=== PATIENT | male | born 1950 | race Caucasian/White ===

== ENCOUNTER 2021-07-23 13:46 | Inpatient (IN) | payer MEDICAID, SELFPAY ==
[~2021-07-23] VITALS: Ht 177.8 cm; Wt 59.9 kg
[2021-07-23 14:06] VITALS: BP_SYST 102
[2021-07-23] MEDS ORDERED: NACL 0.9% 2,000 ML IV ONE (14:45)
[2021-07-23] MEDS ORDERED: AZITHROMYCIN 500 MG in NS 250 ML IV ONE (14:45)
[2021-07-23] MEDS ORDERED: cefTRIAXone 1 GM IVPB PREMIX 50 ML IV ONE (14:45)
[2021-07-23] MEDS ORDERED: AZITHROMYCIN 500 MG/VIAL (ZITHROMAX) IV ONE (15:00)
[2021-07-23 15:18] LABS: HEMATOCRIT 50.1 % (36-54); HEMOGLOBIN 15.5 g/dL (14.0-18.0); MEAN CORPUSCULAR HEMOGLOBIN 31 pg (27-31); MEAN CORPUSCULAR HGB CONC 31 % (32-36); MEAN CORPUSCULAR VOLUME 99 fL (79.0-98.0); PLATELET COUNT (AUTO) 70 K/uL (130-430); RED BLOOD CELL COUNT(AUTO) 5.06 MIL/uL (4.2-6.2); RED CELL DISTRIBUTION WIDTH 14.1 % (9.0-15.0)
[2021-07-23 15:25] LABS: ANION GAP 11 (5-15); CALCIUM 9.9 mg/dL (8.4-11.0); CREATININE 1.42 mg/dL (0.55-1.30); GLUCOSE 278 mg/dL (70-99); POTASSIUM 3.6 mmol/L (3.5-5.1); UREA NITROGEN, BLOOD 81 mg/dL (8-21)
[2021-07-23 15:31] LABS: ALANINE AMINOTRANSFERASE 15 U/L (12-78); ALBUMIN 3.1 g/dL (3.4-4.8); ASPARTATE AMINOTRANSFERASE 17 U/L (10-37)
[2021-07-23 15:37] LABS: WHITE BLOOD COUNT (AUTO) 17.5 K/uL (4.8-10.8)
[2021-07-23 15:44] LABS: SODIUM SERUM 166 mmol/L (136-145)
[2021-07-23 15:45] LABS: CHLORIDE 122 mmol/L (98-107)
[2021-07-23 16:32] LABS: BILIRUBIN,URINE NEGATIVE (NEGATIVE); BLOOD, URINE 3+ (NEGATIVE); CLARITY/URINE CLOUDY (CLEAR); COLOR,URINE YELLOW (YELLOW); GLUCOSE,URINE 2+ (NEGATIVE); KETONES,URINE NEGATIVE (NEGATIVE); LEUKOCYTE ESTERASE ,URINE 2+ (NEGATIVE); NITRITE, URINE NEGATIVE (NEGATIVE); PROTEIN URINE 2+ (NEGATIVE)
[2021-07-23 16:48] LABS: BACTERIA,URINE MODERATE /HPF (None Seen); RBC,URINE 50-80 /HPF (0-3); URINE AMORPHOUS URATE 2+ /HPF (None Seen); WBC,URINE 50-80 /HPF (0-3); YEAST,URINE Many /HPF (None Seen)
[2021-07-23 16:49] LABS: MUCUS,URINE None Seen /LPF (None Seen)
[2021-07-23] MEDS ORDERED: cefTRIAXone 1 GM in D5W 50 ML IV SCH (17:00)
[2021-07-23] MEDS ORDERED: DEXTROSE 50% JECT 50 ML DISP.SYRIN IVP PRN (17:00)
[2021-07-23] MEDS: 0.45% NACL 1,000 ML IV SCH ×3 (17:00→23:44)
[2021-07-23 17:40] LABS: BAND % (MANUAL) 26 % (0-6); LYMPHOCYTES % (MANUAL) 17 % (20-46)
[2021-07-23 17:41] LABS: BASOPHILS % (MANUAL) 0 % (0-2); EOSINOPHILS % (MANUAL) 0 % (0-7); MONOCYTES % (MANUAL) 3 % (0-11)
[2021-07-23] MEDS ORDERED: ENOXAPARIN SODIUM 30 MG/0.3 ML SYRINGE SUBCUT SCH (21:00)
[2021-07-23] MEDS: INSULIN REGULAR, HUMAN 100 UNITS/ML, 10 ML VIAL (humuLIN R) SUBCUT PRN (21:18)
[2021-07-23] MEDS ORDERED: PIPERACILLIN/TAZOBACTAM 2.25 GM VIAL IV ONE (21:22)
[2021-07-23] MEDS: PIPERACILLIN/TAZO 2.25G/DEX-IS 50 ML IV SCH (21:49)
[2021-07-23] MEDS ORDERED: LISI20TA30 GT (22:26)
[2021-07-23] MEDS ORDERED: TYLL650 GT (22:26)
[2021-07-23] MEDS ORDERED: DONE10TA44 GT (22:26)
[2021-07-23] MEDS ORDERED: ERTU5TAB GT (22:36)
[2021-07-23] MEDS ORDERED: COLL100 GT (22:36)
[2021-07-23] MEDS ORDERED: EMPA10TA GT (22:36)
[2021-07-23] MEDS ORDERED: [UNRECOGNIZED DRUG - CODE] GT (22:36)
[2021-07-23] MEDS ORDERED: OMEP40CA20 GT (22:36)
[2021-07-23] MEDS ORDERED: NOR10 GT (22:36)
[2021-07-23] MEDS ORDERED: CHOL100062 GT (22:36)
[2021-07-23] MEDS ORDERED: LABE200T5 GT (22:36)
[2021-07-23] MEDS ORDERED: CALC-16 GT (22:36)
[2021-07-23] MEDS ORDERED: METF1000 GT (22:36)
[2021-07-23] MEDS ORDERED: FERR220S5 GT (22:36)
[2021-07-23] MEDS ORDERED: SUCR1ORA15 GT (22:36)
[2021-07-23 23:20] VITALS: BP_SYST 117
[2021-07-24 00:01] VITALS: BP_SYST 117
[2021-07-24] MEDS: 0.45% NACL 1,000 ML IV SCH ×5 (03:12→17:17)
[2021-07-24 04:30] VITALS: BP_SYST 142
[2021-07-24] MEDS: PIPERACILLIN/TAZO 2.25G/DEX-IS 50 ML IV SCH ×5 (05:53→23:56)
[2021-07-24 07:48] LABS: BASOPHILS % (AUTO) 0.3 % (0.0-2.0); EOSINOPHILS # (AUTO) 0.2 K/uL (0.0-0.4); HEMATOCRIT 33.7 % (36-54); HEMOGLOBIN 10.5 g/dL (14.0-18.0); LYMPHOCYTES # (AUTO) 1.7 K/uL (1.0-5.5); MEAN CORPUSCULAR HEMOGLOBIN 31 pg (27-31); MEAN CORPUSCULAR HGB CONC 31 % (32-36); MEAN CORPUSCULAR VOLUME 101 fL (79.0-98.0); MONOCYTES # (AUTO) 0.8 K/uL (0.0-1.0); MONOCYTES % (AUTO) 5.2 % (1.7-9.3); NEUTROPHILS # (AUTO) 12.8 K/uL (1.8-7.7); NEUTROPHILS % (AUTO) 82.5 % (40.0-70.0); RED BLOOD CELL COUNT(AUTO) 3.35 MIL/uL (4.2-6.2); RED CELL DISTRIBUTION WIDTH 14.4 % (9.0-15.0); WHITE BLOOD COUNT (AUTO) 15.5 K/uL (4.8-10.8)
[2021-07-24 08:15] VITALS: BP_SYST 129
[2021-07-24 08:23] LABS: ALANINE AMINOTRANSFERASE 18 U/L (12-78); ALBUMIN 2.1 g/dL (3.4-4.8); ANION GAP 6 (5-15); CALCIUM 7.9 mg/dL (8.4-11.0); CREATININE 0.93 mg/dL (0.55-1.30); GLUCOSE 196 mg/dL (70-99); POTASSIUM 3.2 mmol/L (3.5-5.1); SODIUM SERUM 159 mmol/L (136-145); TOTAL BILIRUBIN 1.3 mg/dL (0.0-1.0); UREA NITROGEN, BLOOD 51 mg/dL (8-21)
[2021-07-24 08:46] LABS: PLATELET COUNT (AUTO) 45 K/uL (130-430)
[2021-07-24 09:14] LABS: CHLORIDE 124 mmol/L (98-107)
[2021-07-24 09:15] LABS: ASPARTATE AMINOTRANSFERASE 46 U/L (10-37)
[2021-07-24 12:22] VITALS: BP_SYST 132
[2021-07-24 16:00] VITALS: BP_SYST 130
[2021-07-24] MEDS: SUCRALFATE 1 GM/10 ML UDC GT SCH ×2 (17:25→21:52)
[2021-07-24] MEDS ORDERED: POTASSIUM CHLORIDE 20 MEQ/PKT PACKET PO ONE (17:30)
[2021-07-24] MEDS ORDERED: metFORMIN HCL 500 MG TABLET GT SCH (18:00)
[2021-07-24 20:00] VITALS: BP_SYST 137
[2021-07-24] MEDS ORDERED: lisinopriL 20 MG TABLET GT SCH (21:00)
[2021-07-24] MEDS: ACETAMINOPHEN 650 MG/20.3 ML UDC GT SCH (21:52)
[2021-07-24] MEDS: DONEPEZIL HCL 5 MG TABLET (ARICEPT) GT SCH (21:54)
[2021-07-24] MEDS: lisinopriL 20 MG TABLET GT SCH (21:54)
[2021-07-25 00:40] VITALS: BP_SYST 107
[2021-07-25] MEDS: 0.45% NACL 1,000 ML IV SCH ×2 (04:27→11:29)
[2021-07-25] MEDS: PIPERACILLIN/TAZO 2.25G/DEX-IS 50 ML IV SCH ×3 (06:30→17:56)
[2021-07-25 07:49] LABS: BASOPHILS % (AUTO) 0.3 % (0.0-2.0); EOSINOPHILS # (AUTO) 0.4 K/uL (0.0-0.4); EOSINOPHILS % (AUTO) 3.2 % (0.0-4.0); HEMATOCRIT 32.1 % (36-54); HEMOGLOBIN 10.2 g/dL (14.0-18.0); LYMPHOCYTES # (AUTO) 1.4 K/uL (1.0-5.5); LYMPHOCYTES % (AUTO) 11.8 % (20.5-51.5); MEAN CORPUSCULAR HEMOGLOBIN 31 pg (27-31); MEAN CORPUSCULAR HGB CONC 32 % (32-36); MEAN CORPUSCULAR VOLUME 99 fL (79.0-98.0); MONOCYTES # (AUTO) 0.7 K/uL (0.0-1.0); MONOCYTES % (AUTO) 6.1 % (1.7-9.3); NEUTROPHILS # (AUTO) 9.2 K/uL (1.8-7.7); RED BLOOD CELL COUNT(AUTO) 3.24 MIL/uL (4.2-6.2); RED CELL DISTRIBUTION WIDTH 13.4 % (9.0-15.0); RETICULOCYTE COUNT 0.8 % (0.5-1.5); WHITE BLOOD COUNT (AUTO) 11.7 K/uL (4.8-10.8)
[2021-07-25 07:59] LABS: TOTAL IRON BIND. CAPACITY 135 ug/dL (250-450)
[2021-07-25 08:00] VITALS: BP_SYST 120
[2021-07-25 08:03] LABS: ALANINE AMINOTRANSFERASE 20 U/L (12-78); ASPARTATE AMINOTRANSFERASE 28 U/L (10-37); CALCIUM 7.9 mg/dL (8.4-11.0); CREATININE 0.64 mg/dL (0.55-1.30); GLUCOSE 97 mg/dL (70-99); TOTAL BILIRUBIN 0.8 mg/dL (0.0-1.0); UREA NITROGEN, BLOOD 30 mg/dL (8-21)
[2021-07-25 08:09] LABS: PROTHROMBIN TIME 10.3 SECS (9.5-12.5)
[2021-07-25 08:37] LABS: ANION GAP 6 (5-15); POTASSIUM 3.6 mmol/L (3.5-5.1); SODIUM SERUM 157 mmol/L (136-145)
[2021-07-25 08:45] LABS: CHLORIDE 122 mmol/L (98-107)
[2021-07-25] MEDS ORDERED: OMEPRAZOLE Non-Formulary 20 MG CAPSULE.DR GT SCH (09:00)
[2021-07-25] MEDS ORDERED: NON-FORMULARY MEDICATION (Empagliflozin (Jardiance) 10 MG) GT SCH (09:00)
[2021-07-25] MEDS ORDERED: NON-FORMULARY MEDICATION (Cholecalciferol (Vitamin D3) (Vitamin D3) 1,000 UNIT) GT SCH (09:00)
[2021-07-25] MEDS ORDERED: ERTUGLIFLOZIN PIDOLATE 5 MG GT SCH (09:00)
[2021-07-25 09:33] LABS: PLATELET COUNT (AUTO) 39 K/uL (130-430)
[2021-07-25] MEDS: DOCUSATE SODIUM 100 MG/10 ML UDC GT SCH (09:56)
[2021-07-25] MEDS: amLODIPine BESYLATE 10 MG TABLET GT SCH (09:56)
[2021-07-25] MEDS: SUCRALFATE 1 GM/10 ML UDC GT SCH ×4 (09:56→21:14)
[2021-07-25] MEDS: ACETAMINOPHEN 650 MG/20.3 ML UDC GT SCH ×2 (09:57→21:09)
[2021-07-25] MEDS: PANTOPRAZOLE SODIUM 40 MG TAB GT SCH (09:57)
[2021-07-25] MEDS: CHOLECALCIFEROL (VITAMIN D3) 2,000 UNIT TABLET GT SCH (09:57)
[2021-07-25] MEDS: POTASSIUM CHLORIDE 20 MEQ/PKT PACKET PO SCH (09:57)
[2021-07-25] MEDS: lisinopriL 20 MG TABLET GT SCH ×2 (09:57→21:15)
[2021-07-25 11:48] VITALS: BP_SYST 119
[2021-07-25 12:00] VITALS: BP_SYST 120
[2021-07-25 14:42] LABS: NEUTROPHILS % (AUTO) 78.6 % (40.0-70.0)
[2021-07-25 16:00] VITALS: BP_SYST 122
[2021-07-25 20:00] VITALS: BP_SYST 136
[2021-07-25] MEDS: DONEPEZIL HCL 5 MG TABLET (ARICEPT) GT SCH (21:10)
[2021-07-25] MEDS: LABETALOL HCL 100 MG TABLET GT SCH (21:10)
[2021-07-25] MEDS: CALCIUM CARBONATE/VITAMIN D3 1 TAB TABLET GT SCH (21:16)
[2021-07-26] MEDS: PIPERACILLIN/TAZO 2.25G/DEX-IS 50 ML IV SCH ×4 (00:06→17:37)
[2021-07-26 00:21] VITALS: BP_SYST 133
[2021-07-26 06:06] LABS: FOLATE (FOLIC ACID) 13.3 ng/mL (>3.0)
[2021-07-26] MEDS: DOCUSATE SODIUM 100 MG/10 ML UDC GT SCH (08:41)
[2021-07-26] MEDS: FERROUS SULFATE 300 MG/5 ML UDC GT SCH (08:41)
[2021-07-26] MEDS: SUCRALFATE 1 GM/10 ML UDC GT SCH ×4 (08:41→22:42)
[2021-07-26] MEDS: POTASSIUM CHLORIDE 20 MEQ/PKT PACKET PO SCH (08:42)
[2021-07-26] MEDS: CHOLECALCIFEROL (VITAMIN D3) 2,000 UNIT TABLET GT SCH (08:42)
[2021-07-26] MEDS: MULTIVITS,CA,MINERALS/IRON/FA 1 TABLET GT SCH (08:43)
[2021-07-26] MEDS: PANTOPRAZOLE SODIUM 40 MG TAB GT SCH (08:43)
[2021-07-26] MEDS: CALCIUM CARBONATE/VITAMIN D3 1 TAB TABLET GT SCH ×2 (08:44→21:00)
[2021-07-26] MEDS: amLODIPine BESYLATE 10 MG TABLET GT SCH (08:53)
[2021-07-26] MEDS: lisinopriL 20 MG TABLET GT SCH ×2 (08:53→22:35)
[2021-07-26] MEDS: ACETAMINOPHEN 650 MG/20.3 ML UDC GT SCH ×2 (08:54→22:44)
[2021-07-26] MEDS: LABETALOL HCL 100 MG TABLET GT SCH ×2 (08:54→22:37)
[2021-07-26 10:35] LABS: ALANINE AMINOTRANSFERASE 20 U/L (12-78); ALBUMIN 2.2 g/dL (3.4-4.8); ANION GAP 6 (5-15); ASPARTATE AMINOTRANSFERASE 23 U/L (10-37); CALCIUM 8.5 mg/dL (8.4-11.0); CHLORIDE 114 mmol/L (98-107); CREATININE 0.57 mg/dL (0.55-1.30); GLUCOSE 111 mg/dL (70-99); POTASSIUM 3.8 mmol/L (3.5-5.1); SODIUM SERUM 150 mmol/L (136-145); TOTAL BILIRUBIN 0.7 mg/dL (0.0-1.0); UREA NITROGEN, BLOOD 17 mg/dL (8-21)
[2021-07-26 11:21] LABS: BASOPHILS % (AUTO) 0.5 % (0.0-2.0); EOSINOPHILS # (AUTO) 0.3 K/uL (0.0-0.4); EOSINOPHILS % (AUTO) 3.6 % (0.0-4.0); HEMOGLOBIN 10.7 g/dL (14.0-18.0); LYMPHOCYTES # (AUTO) 1.3 K/uL (1.0-5.5); LYMPHOCYTES % (AUTO) 16.5 % (20.5-51.5); MEAN CORPUSCULAR HEMOGLOBIN 31 pg (27-31); MEAN CORPUSCULAR HGB CONC 32 % (32-36); MEAN CORPUSCULAR VOLUME 97 fL (79.0-98.0); MONOCYTES # (AUTO) 0.5 K/uL (0.0-1.0); MONOCYTES % (AUTO) 6.1 % (1.7-9.3); NEUTROPHILS # (AUTO) 5.6 K/uL (1.8-7.7); NEUTROPHILS % (AUTO) 73.3 % (40.0-70.0); RED CELL DISTRIBUTION WIDTH 13.1 % (9.0-15.0); WHITE BLOOD COUNT (AUTO) 7.7 K/uL (4.8-10.8)
[2021-07-26] MEDS: INSULIN REGULAR, HUMAN 100 UNITS/ML, 10 ML VIAL (humuLIN R) SUBCUT PRN ×2 (11:46→17:36)
[2021-07-26] MEDS: 0.45% NACL 1,000 ML IV SCH (11:50)
[2021-07-26 12:08] VITALS: BP_SYST 113
[2021-07-26] MEDS: ERGOCALCIFEROL 8000 UNITS/ML ORAL SOLUTION, 60 ML BOTTLE GT SCH (13:36)
[2021-07-26 14:36] LABS: PLATELET COUNT (AUTO) 50 K/uL (130-430)
[2021-07-26 16:27] VITALS: BP_SYST 123
[2021-07-26] MEDS: DONEPEZIL HCL 5 MG TABLET (ARICEPT) GT SCH (22:32)
[2021-07-26] MEDS: ACETAMINOPHEN 650 MG/20.3 ML UDC GT PRN (22:39)
[2021-07-27 00:51] VITALS: BP_SYST 131
[2021-07-27] MEDS: PIPERACILLIN/TAZO 2.25G/DEX-IS 50 ML IV SCH ×5 (00:52→12:28)
[2021-07-27] MEDS: INSULIN REGULAR, HUMAN 100 UNITS/ML, 10 ML VIAL (humuLIN R) SUBCUT PRN ×3 (01:42→16:53)
[2021-07-27] MEDS: ACETAMINOPHEN 650 MG/20.3 ML UDC GT PRN ×2 (07:30→23:42)
[2021-07-27] MEDS: PANTOPRAZOLE SODIUM 40 MG TAB GT SCH (09:00)
[2021-07-27] MEDS: SUCRALFATE 1 GM/10 ML UDC GT SCH ×4 (09:17→23:31)
[2021-07-27] MEDS: MULTIVITS,CA,MINERALS/IRON/FA 1 TABLET GT SCH (09:18)
[2021-07-27] MEDS: POTASSIUM CHLORIDE 20 MEQ/PKT PACKET PO SCH (09:18)
[2021-07-27] MEDS: FERROUS SULFATE 300 MG/5 ML UDC GT SCH (09:18)
[2021-07-27] MEDS: amLODIPine BESYLATE 10 MG TABLET GT SCH (09:19)
[2021-07-27] MEDS: LABETALOL HCL 100 MG TABLET GT SCH ×2 (09:19→23:29)
[2021-07-27] MEDS: CHOLECALCIFEROL (VITAMIN D3) 2,000 UNIT TABLET GT SCH (09:20)
[2021-07-27] MEDS: CALCIUM CARBONATE/VITAMIN D3 1 TAB TABLET GT SCH ×2 (09:20→21:00)
[2021-07-27] MEDS: ERGOCALCIFEROL 8000 UNITS/ML ORAL SOLUTION, 60 ML BOTTLE GT SCH (09:20)
[2021-07-27] MEDS: lisinopriL 20 MG TABLET GT SCH (09:22)
[2021-07-27] MEDS: DOCUSATE SODIUM 100 MG/10 ML UDC GT SCH (09:22)
[2021-07-27 09:55] LABS: ANION GAP 6 (5-15); CHLORIDE 113 mmol/L (98-107); CREATININE 0.47 mg/dL (0.55-1.30); GLUCOSE 138 mg/dL (70-99); POTASSIUM 4.1 mmol/L (3.5-5.1); SODIUM SERUM 147 mmol/L (136-145); UREA NITROGEN, BLOOD 15 mg/dL (8-21)
[2021-07-27] MEDS: 0.45% NACL 1,000 ML IV SCH (10:48)
[2021-07-27] MEDS: AMPICILLIN SODIUM 1 GM in NS 50 ML IV SCH (16:56)
[2021-07-27 17:10] LABS: HEMATOCRIT 34.4 % (36-54); HEMOGLOBIN 11.2 g/dL (14.0-18.0); MEAN CORPUSCULAR HEMOGLOBIN 32 pg (27-31); MEAN CORPUSCULAR HGB CONC 33 % (32-36); MEAN CORPUSCULAR VOLUME 97 fL (79.0-98.0); PLATELET COUNT (AUTO) 62 K/uL (130-430); RED BLOOD CELL COUNT(AUTO) 3.53 MIL/uL (4.2-6.2); RED CELL DISTRIBUTION WIDTH 13.1 % (9.0-15.0)
[2021-07-27 17:13] LABS: BAND % (MANUAL) 0 % (0-6); BASOPHILS % (MANUAL) 0 % (0-2); EOSINOPHILS % (MANUAL) 2 % (0-7); LYMPHOCYTES % (MANUAL) 12 % (20-46); METAMYELOCYTES % 1 % (0-0); MONOCYTES % (MANUAL) 9 % (0-11)
[2021-07-27] MEDS: DONEPEZIL HCL 5 MG TABLET (ARICEPT) GT SCH (23:30)
[2021-07-28] MEDS: AMPICILLIN SODIUM 1 GM in NS 50 ML IV SCH ×4 (00:45→16:34)
[2021-07-28] MEDS: ACETAMINOPHEN 650 MG/20.3 ML UDC GT PRN (00:46)
[2021-07-28 01:44] VITALS: BP_SYST 132
[2021-07-28] MEDS: DOCUSATE SODIUM 100 MG/10 ML UDC GT SCH (09:00)
[2021-07-28] MEDS: FERROUS SULFATE 300 MG/5 ML UDC GT SCH (09:42)
[2021-07-28] MEDS: SUCRALFATE 1 GM/10 ML UDC GT SCH ×4 (09:42→22:21)
[2021-07-28] MEDS: POTASSIUM CHLORIDE 20 MEQ/PKT PACKET PO SCH (09:43)
[2021-07-28] MEDS: LACTOBACILLUS RHAMNOSUS GG 1 CAP CAPSULE GT SCH ×3 (09:44→22:21)
[2021-07-28] MEDS: PANTOPRAZOLE SODIUM 40 MG TAB GT SCH (09:45)
[2021-07-28] MEDS: MULTIVITS,CA,MINERALS/IRON/FA 1 TABLET GT SCH (09:45)
[2021-07-28] MEDS: CHOLECALCIFEROL (VITAMIN D3) 2,000 UNIT TABLET GT SCH (09:45)
[2021-07-28] MEDS: LABETALOL HCL 100 MG TABLET GT SCH ×2 (09:46→22:23)
[2021-07-28] MEDS: ERGOCALCIFEROL 8000 UNITS/ML ORAL SOLUTION, 60 ML BOTTLE GT SCH (09:47)
[2021-07-28] MEDS: amLODIPine BESYLATE 10 MG TABLET GT SCH (09:48)
[2021-07-28] MEDS: CALCIUM CARBONATE/VITAMIN D3 1 TAB TABLET GT SCH ×2 (09:48→22:21)
[2021-07-28 10:11] VITALS: BP_SYST 138
[2021-07-28 10:24] LABS: ALANINE AMINOTRANSFERASE 38 U/L (12-78); ALBUMIN 2.3 g/dL (3.4-4.8); ANION GAP 6 (5-15); ASPARTATE AMINOTRANSFERASE 36 U/L (10-37); BASOPHILS % (AUTO) 0.1 % (0.0-2.0); CALCIUM 8.8 mg/dL (8.4-11.0); CHLORIDE 115 mmol/L (98-107); CREATININE 0.61 mg/dL (0.55-1.30); EOSINOPHILS # (AUTO) 0.3 K/uL (0.0-0.4); EOSINOPHILS % (AUTO) 3.8 % (0.0-4.0); GLUCOSE 190 mg/dL (70-99); HEMATOCRIT 34.2 % (36-54); HEMOGLOBIN 10.8 g/dL (14.0-18.0); LYMPHOCYTES # (AUTO) 1.2 K/uL (1.0-5.5); LYMPHOCYTES % (AUTO) 14.1 % (20.5-51.5); MEAN CORPUSCULAR HEMOGLOBIN 31 pg (27-31); MEAN CORPUSCULAR HGB CONC 32 % (32-36); MEAN CORPUSCULAR VOLUME 98 fL (79.0-98.0); MONOCYTES # (AUTO) 0.8 K/uL (0.0-1.0); MONOCYTES % (AUTO) 9.1 % (1.7-9.3); NEUTROPHILS # (AUTO) 6.3 K/uL (1.8-7.7); NEUTROPHILS % (AUTO) 72.9 % (40.0-70.0); PLATELET COUNT (AUTO) 69 K/uL (130-430); POTASSIUM 4.2 mmol/L (3.5-5.1); RED BLOOD CELL COUNT(AUTO) 3.48 MIL/uL (4.2-6.2); RED CELL DISTRIBUTION WIDTH 13.3 % (9.0-15.0); SODIUM SERUM 153 mmol/L (136-145); TOTAL BILIRUBIN 0.4 mg/dL (0.0-1.0); UREA NITROGEN, BLOOD 24 mg/dL (8-21); WHITE BLOOD COUNT (AUTO) 8.6 K/uL (4.8-10.8)
[2021-07-28] MEDS: INSULIN REGULAR, HUMAN 100 UNITS/ML, 10 ML VIAL (humuLIN R) SUBCUT PRN ×2 (11:09→17:09)
[2021-07-28] MEDS: 0.45% NACL 1,000 ML IV SCH (11:26)
[2021-07-28 12:39] VITALS: BP_SYST 128
[2021-07-28 17:01] VITALS: BP_SYST 131
[2021-07-28] MEDS: DONEPEZIL HCL 5 MG TABLET (ARICEPT) GT SCH (22:08)
[2021-07-28] MEDS: lisinopriL 20 MG TABLET GT SCH ×2 (22:20→22:25)
[2021-07-28] MEDS: ACETAMINOPHEN 650 MG/20.3 ML UDC GT SCH (22:27)
[2021-07-29 00:55] VITALS: BP_SYST 123
[2021-07-29] MEDS: ACETAMINOPHEN 650 MG/20.3 ML UDC GT PRN ×2 (02:05→11:11)
[2021-07-29] MEDS: AMPICILLIN SODIUM 1 GM in NS 50 ML IV SCH ×4 (05:47→19:01)
[2021-07-29] MEDS: INSULIN REGULAR, HUMAN 100 UNITS/ML, 10 ML VIAL (humuLIN R) SUBCUT PRN ×2 (06:53→13:53)
[2021-07-29 08:00] VITALS: BP_SYST 133
[2021-07-29] MEDS: ERGOCALCIFEROL 8000 UNITS/ML ORAL SOLUTION, 60 ML BOTTLE GT SCH (09:00)
[2021-07-29 10:41] LABS: ALANINE AMINOTRANSFERASE 36 U/L (12-78); ALBUMIN 2.2 g/dL (3.4-4.8); ANION GAP 6 (5-15); ASPARTATE AMINOTRANSFERASE 32 U/L (10-37); CALCIUM 8.6 mg/dL (8.4-11.0); CHLORIDE 116 mmol/L (98-107); CREATININE 0.51 mg/dL (0.55-1.30); GLUCOSE 157 mg/dL (70-99); POTASSIUM 3.9 mmol/L (3.5-5.1); SODIUM SERUM 153 mmol/L (136-145); TOTAL BILIRUBIN 0.4 mg/dL (0.0-1.0); UREA NITROGEN, BLOOD 24 mg/dL (8-21)
[2021-07-29] MEDS: FERROUS SULFATE 300 MG/5 ML UDC GT SCH (11:10)
[2021-07-29] MEDS: DOCUSATE SODIUM 100 MG/10 ML UDC GT SCH (11:11)
[2021-07-29] MEDS: POTASSIUM CHLORIDE 20 MEQ/PKT PACKET PO SCH (11:11)
[2021-07-29] MEDS: CALCIUM CARBONATE/VITAMIN D3 1 TAB TABLET GT SCH ×2 (11:12→21:21)
[2021-07-29] MEDS: SUCRALFATE 1 GM/10 ML UDC GT SCH ×4 (11:12→21:21)
[2021-07-29] MEDS: PANTOPRAZOLE SODIUM 40 MG TAB GT SCH (11:12)
[2021-07-29] MEDS: LACTOBACILLUS RHAMNOSUS GG 1 CAP CAPSULE GT SCH ×2 (11:13→21:23)
[2021-07-29] MEDS: MULTIVITS,CA,MINERALS/IRON/FA 1 TABLET GT SCH (11:13)
[2021-07-29] MEDS: CHOLECALCIFEROL (VITAMIN D3) 2,000 UNIT TABLET GT SCH (11:13)
[2021-07-29] MEDS: amLODIPine BESYLATE 10 MG TABLET GT SCH (11:14)
[2021-07-29] MEDS: LABETALOL HCL 100 MG TABLET GT SCH ×2 (11:15→21:23)
[2021-07-29 12:08] LABS: BASOPHILS % (AUTO) 0.2 % (0.0-2.0); EOSINOPHILS # (AUTO) 0.4 K/uL (0.0-0.4); EOSINOPHILS % (AUTO) 4.8 % (0.0-4.0); HEMATOCRIT 32.6 % (36-54); HEMOGLOBIN 10.5 g/dL (14.0-18.0); LYMPHOCYTES # (AUTO) 1.2 K/uL (1.0-5.5); LYMPHOCYTES % (AUTO) 15.5 % (20.5-51.5); MEAN CORPUSCULAR HEMOGLOBIN 31 pg (27-31); MEAN CORPUSCULAR HGB CONC 32 % (32-36); MEAN CORPUSCULAR VOLUME 98 fL (79.0-98.0); MONOCYTES # (AUTO) 0.7 K/uL (0.0-1.0); NEUTROPHILS # (AUTO) 5.4 K/uL (1.8-7.7); NEUTROPHILS % (AUTO) 70.5 % (40.0-70.0); PLATELET COUNT (AUTO) 87 K/uL (130-430); RED BLOOD CELL COUNT(AUTO) 3.34 MIL/uL (4.2-6.2); RED CELL DISTRIBUTION WIDTH 13.2 % (9.0-15.0); WHITE BLOOD COUNT (AUTO) 7.7 K/uL (4.8-10.8)
[2021-07-29 12:31] VITALS: BP_SYST 152
[2021-07-29] MEDS: 0.45% NACL 1,000 ML IV SCH (13:40)
[2021-07-29 15:37] VITALS: BP_SYST 150
[2021-07-29 18:01] VITALS: BP_SYST 148
[2021-07-29 20:05] VITALS: BP_SYST 163
[2021-07-29] MEDS: lisinopriL 20 MG TABLET GT SCH (21:22)
[2021-07-29] MEDS: DONEPEZIL HCL 5 MG TABLET (ARICEPT) GT SCH (21:23)
[2021-07-29] MEDS: ACETAMINOPHEN 650 MG/20.3 ML UDC GT SCH (21:23)
[2021-07-30] MEDS: AMPICILLIN SODIUM 1 GM in NS 50 ML IV SCH ×5 (00:04→23:46)
[2021-07-30 00:31] VITALS: BP_SYST 125
[2021-07-30] MEDS: 0.45% NACL 1,000 ML IV SCH (03:16)
[2021-07-30] MEDS: INSULIN REGULAR, HUMAN 100 UNITS/ML, 10 ML VIAL (humuLIN R) SUBCUT PRN ×4 (06:06→20:53)
[2021-07-30 07:56] LABS: BASOPHILS % (AUTO) 0.4 % (0.0-2.0); EOSINOPHILS # (AUTO) 0.3 K/uL (0.0-0.4); EOSINOPHILS % (AUTO) 3.9 % (0.0-4.0); HEMATOCRIT 33.8 % (36-54); HEMOGLOBIN 10.7 g/dL (14.0-18.0); LYMPHOCYTES # (AUTO) 1.5 K/uL (1.0-5.5); LYMPHOCYTES % (AUTO) 20.9 % (20.5-51.5); MEAN CORPUSCULAR HEMOGLOBIN 31 pg (27-31); MEAN CORPUSCULAR HGB CONC 32 % (32-36); MEAN CORPUSCULAR VOLUME 99 fL (79.0-98.0); MONOCYTES # (AUTO) 0.7 K/uL (0.0-1.0); MONOCYTES % (AUTO) 9.7 % (1.7-9.3); NEUTROPHILS # (AUTO) 4.7 K/uL (1.8-7.7); NEUTROPHILS % (AUTO) 65.1 % (40.0-70.0); PLATELET COUNT (AUTO) 85 K/uL (130-430); RED BLOOD CELL COUNT(AUTO) 3.43 MIL/uL (4.2-6.2); RED CELL DISTRIBUTION WIDTH 13.5 % (9.0-15.0); WHITE BLOOD COUNT (AUTO) 7.3 K/uL (4.8-10.8)
[2021-07-30 08:01] LABS: ANION GAP 7 (5-15); CALCIUM 8.4 mg/dL (8.4-11.0); CHLORIDE 114 mmol/L (98-107); CREATININE 0.53 mg/dL (0.55-1.30); GLUCOSE 208 mg/dL (70-99); POTASSIUM 4.2 mmol/L (3.5-5.1); SODIUM SERUM 149 mmol/L (136-145); UREA NITROGEN, BLOOD 26 mg/dL (8-21)
[2021-07-30 08:15] VITALS: BP_SYST 138
[2021-07-30] MEDS: FERROUS SULFATE 300 MG/5 ML UDC GT SCH (09:00)
[2021-07-30] MEDS: lisinopriL 20 MG TABLET GT SCH ×2 (09:03→20:51)
[2021-07-30] MEDS: PANTOPRAZOLE SODIUM 40 MG TAB GT SCH (09:03)
[2021-07-30] MEDS: LABETALOL HCL 100 MG TABLET GT SCH ×2 (09:04→20:50)
[2021-07-30] MEDS: LACTOBACILLUS RHAMNOSUS GG 1 CAP CAPSULE GT SCH ×2 (09:07→20:50)
[2021-07-30] MEDS: ACETAMINOPHEN 650 MG/20.3 ML UDC GT SCH ×2 (09:07→20:49)
[2021-07-30] MEDS: POTASSIUM CHLORIDE 20 MEQ/PKT PACKET PO SCH (09:07)
[2021-07-30] MEDS: MULTIVITS,CA,MINERALS/IRON/FA 1 TABLET GT SCH (09:08)
[2021-07-30] MEDS: amLODIPine BESYLATE 10 MG TABLET GT SCH (09:08)
[2021-07-30] MEDS: SUCRALFATE 1 GM/10 ML UDC GT SCH ×4 (09:08→20:49)
[2021-07-30] MEDS: CHOLECALCIFEROL (VITAMIN D3) 2,000 UNIT TABLET GT SCH (09:08)
[2021-07-30] MEDS: DOCUSATE SODIUM 100 MG/10 ML UDC GT SCH (09:08)
[2021-07-30] MEDS: CALCIUM CARBONATE/VITAMIN D3 1 TAB TABLET GT SCH ×2 (09:14→20:50)
[2021-07-30] MEDS: ERGOCALCIFEROL 8000 UNITS/ML ORAL SOLUTION, 60 ML BOTTLE GT SCH (09:17)
[2021-07-30 12:26] VITALS: BP_SYST 135
[2021-07-30 16:55] VITALS: BP_SYST 160
[2021-07-30 20:00] VITALS: BP_SYST 149
[2021-07-30] MEDS: DONEPEZIL HCL 5 MG TABLET (ARICEPT) GT SCH (20:50)
[2021-07-31 01:00] VITALS: BP_SYST 141
[2021-07-31] MEDS: AMPICILLIN SODIUM 1 GM in NS 50 ML IV SCH ×2 (05:29→11:48)
[2021-07-31 07:42] LABS: ALANINE AMINOTRANSFERASE 27 U/L (12-78); ALBUMIN 2.4 g/dL (3.4-4.8); ANION GAP 8 (5-15); ASPARTATE AMINOTRANSFERASE 20 U/L (10-37); CALCIUM 8.5 mg/dL (8.4-11.0); CHLORIDE 112 mmol/L (98-107); CREATININE 0.55 mg/dL (0.55-1.30); GLUCOSE 164 mg/dL (70-99); POTASSIUM 3.7 mmol/L (3.5-5.1); SODIUM SERUM 149 mmol/L (136-145); TOTAL BILIRUBIN 0.2 mg/dL (0.0-1.0); UREA NITROGEN, BLOOD 26 mg/dL (8-21)
[2021-07-31 07:48] LABS: BASOPHILS % (AUTO) 0.3 % (0.0-2.0); EOSINOPHILS # (AUTO) 0.4 K/uL (0.0-0.4); HEMATOCRIT 33.8 % (36-54); HEMOGLOBIN 10.9 g/dL (14.0-18.0); LYMPHOCYTES # (AUTO) 1.7 K/uL (1.0-5.5); LYMPHOCYTES % (AUTO) 23.6 % (20.5-51.5); MEAN CORPUSCULAR HEMOGLOBIN 31 pg (27-31); MEAN CORPUSCULAR HGB CONC 32 % (32-36); MEAN CORPUSCULAR VOLUME 98 fL (79.0-98.0); MONOCYTES # (AUTO) 0.6 K/uL (0.0-1.0); MONOCYTES % (AUTO) 8.4 % (1.7-9.3); NEUTROPHILS # (AUTO) 4.4 K/uL (1.8-7.7); PLATELET COUNT (AUTO) 121 K/uL (130-430); RED BLOOD CELL COUNT(AUTO) 3.46 MIL/uL (4.2-6.2); RED CELL DISTRIBUTION WIDTH 13.3 % (9.0-15.0)
[2021-07-31 08:15] VITALS: BP_SYST 146
[2021-07-31] MEDS: PANTOPRAZOLE SODIUM 40 MG TAB GT SCH (08:29)
[2021-07-31] MEDS: MULTIVITS,CA,MINERALS/IRON/FA 1 TABLET GT SCH (08:29)
[2021-07-31] MEDS: CALCIUM CARBONATE/VITAMIN D3 1 TAB TABLET GT SCH (08:29)
[2021-07-31] MEDS: FERROUS SULFATE 300 MG/5 ML UDC GT SCH (08:30)
[2021-07-31] MEDS: ACETAMINOPHEN 650 MG/20.3 ML UDC GT SCH (08:30)
[2021-07-31] MEDS: CHOLECALCIFEROL (VITAMIN D3) 2,000 UNIT TABLET GT SCH (08:30)
[2021-07-31] MEDS: SUCRALFATE 1 GM/10 ML UDC GT SCH ×2 (08:30→11:48)
[2021-07-31] MEDS: LACTOBACILLUS RHAMNOSUS GG 1 CAP CAPSULE GT SCH (08:30)
[2021-07-31] MEDS: LABETALOL HCL 100 MG TABLET GT SCH (08:30)
[2021-07-31] MEDS: DOCUSATE SODIUM 100 MG/10 ML UDC GT SCH (08:31)
[2021-07-31] MEDS: lisinopriL 20 MG TABLET GT SCH (08:31)
[2021-07-31] MEDS: amLODIPine BESYLATE 10 MG TABLET GT SCH (08:31)
[2021-07-31] MEDS: ERGOCALCIFEROL 8000 UNITS/ML ORAL SOLUTION, 60 ML BOTTLE GT SCH (08:31)
[2021-07-31 09:16] LABS: NEUTROPHILS % (AUTO) 62.7 % (40.0-70.0)
[2021-07-31] MEDS: INSULIN REGULAR, HUMAN 100 UNITS/ML, 10 ML VIAL (humuLIN R) SUBCUT PRN (12:08)
[2021-07-31 12:34] VITALS: BP_SYST 146
[2021-07-31 13:30] VITALS: BP_SYST 146
== END 2021-07-31 14:50 | DRG 720 ==
LOC: SED 13:46 → STU 16:52 → SMU 07-28 18:05
PROVIDERS: ADMIT Internal Medicine; ATTEND Internal Medicine
DX: A41.9 Sepsis, unspecified organism (principal); N17.0 Acute kidney failure with tubular necrosis; G93.41 Metabolic encephalopathy; E87.0 Hyperosmolality and hypernatremia; D69.6 Thrombocytopenia, unspecified; I69.354 Hemiplegia and hemiparesis following cerebral infarction affecting left non-dominant side; E86.0 Dehydration; J44.0 Chronic obstructive pulmonary disease with (acute) lower respiratory infection; N39.0 Urinary tract infection, site not specified; E11.9 Type 2 diabetes mellitus without complications; I10 Essential (primary) hypertension; Z20.822 Contact with and (suspected) exposure to COVID-19; I25.10 Atherosclerotic heart disease of native coronary artery without angina pectoris; B95.2 Enterococcus as the cause of diseases classified elsewhere; E87.6 Hypokalemia; E78.5 Hyperlipidemia, unspecified; Z79.899 Other long term (current) drug therapy; Z93.1 Gastrostomy status
CPT/HCPCS: 36415; 71045; 80048; 80053; 81000; 82272; 82607; 82728; 82746; 82962; 83540; 83550; 83605; 85007; 85025; 85027; 85044; 85379; 85384; 85610-TC; 85730-TC; 87040; 87081; 87086; 87186-TC; 93005; 96365; 96375; 99291; G0378; J0290; J0456; J0696; J1815; J2543